=== PATIENT | female | born 1990 | race Caucasian/White ===

== ENCOUNTER 2022-06-16 20:34 | Emergency (ER) | payer BC ==
[2022-06-16] MEDS ORDERED: ONDANSETRON 4 MG/2 ML VIAL ONE (21:15)
[2022-06-16] MEDS ORDERED: ADENOSINE 6 MG/ 2ML VIAL IV ONE ×2 (21:15→21:22)
[2022-06-16] MEDS ORDERED: NA CHLORIDE 0.9% 1,000 ML ONE (21:15)
[2022-06-16] MEDS ORDERED: AMIODARONE HCL 150 MG/3 ML INJ IV ONE (21:27)
[2022-06-16] MEDS ORDERED: NA CHLORIDE 0.9% 100 ML ONE (21:28)
[2022-06-16] MEDS ORDERED: D5W 100 ML IV ONE (21:29)
--- NOTE | 2022-06-16 21:34 | RAD REPORT ---
EXAM DESCRIPTION: [place] Single View06/16/2022 8:57 pm CLINICAL HISTORY: CHEST PAIN COMPARISON: CHEST SINGLE VIEW dated 08/18/2014; CHEST SINGLE VIEW dated 09/02/2012; CHEST SINGLE VIEW dated 09/23/2008 TECHNIQUE: Portable AP view of the chest. FINDINGS: Hazy opacification at both lung bases, may be somewhat accentuated by overlapping soft tis sues. Rhythm monitoring implantable device in place. No pneumothorax or effusion. The cardiomediastin al contours are unremarkable. Sequelae of prior median sternotomy. IMPRESSION: Bibasilar hazy opacification, could reflect early edema. The appearance may in part be a rtifactual.
[2022-06-16 21:36] LABS: Absolute Lymphocytes (CBC) 2.9 K/uL (0.7-4.9); Hematocrit 41.2 % (36.0-45.0); Lymphocytes % 37.4 % (15.3-44.8); MCV 84.4 fL (80-100); MPV 7.6 fL (7.6-11.3); RBC Red Blood Cell Count 4.88 M/uL (3.86-4.86)
[2022-06-16] MEDS ORDERED: AMIODARONE IN DEXTROSE,ISO-OSM 360 MG/200 ML BAG IV ONE (21:56)
[2022-06-16] MEDS ORDERED: METOPROLOL TARTRATE 5 MG/5 ML INJ IV ONE (21:56)
[2022-06-16 21:58] LABS: ALT/SGPT 21 U/L (13-56); AST/SGOT 13 U/L (15-37); Albumin 3.9 g/dL (3.4-5.0); Alkaline Phosphatase 81 U/L (45-117); BUN Blood Urea Nitrogen 12 mg/dL (7-18); Bicarbonate 27 mEq/L (21-32); Bilirubin Total 0.3 mg/dL (0.2-1.0); Glomerular Filtration Rate 83 ml/min (=/>90); Glucose Level 107 mg/dL (74-106); Magnesium 2.1 mg/dL (1.6-2.4); NT PRO-BNP 25 pg/mL (<125); Potassium 3.2 mEq/L (3.5-5.1); Sodium Level 136 mEq/L (136-145)
[2022-06-16 22:01] LABS: Bilirubin Direct < 0.1 mg/dL (0-0.2)
--- NOTE | 2022-06-16 23:58 | EDPHYS ---
Physician Documentation [facility] Name: Jeanne Bethea Age: 32 yrs Sex: Female : 1990 Arrival Date: 06/16/2022 Time: 20:34 Bed 4 Private MD: ED Physician Lennox Eagle HPI: 06/16 23:56 This 32 yrs old Female presents to ER via Wheelchair with complaints of RAPID HEART kb RATE H/O AFIB, TINGLING IN UPPER EXT. 23:56 The patient presents with a history of heart racing. Context: The symptoms occur at kb rest. Onset: The symptoms/episode began/occurred just prior to arrival. Duration: The patient or guardian reports a single episode. Modifying factors: The symptoms are aggravated by nothing. The symptoms are alleviated by nothing. Associated signs and symptoms: The patient has no apparent associated signs or symptoms. Severity of symptoms: At their worst the symptoms were moderate in the emergency department the symptoms are unchanged. The patient has experienced similar episodes in the past, several times. The patient has not recently seen a physician. 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 Flu vaccine is not up to date. - Social history:: Smoking status: Patient denies any tobacco usage or history of. Patient/guardian denies using alcohol, street drugs. ROS: 23:51 Constitutional: Negative for fever, chills, and weight loss. kb 23:51 Cardiovascular: Positive for palpitations. 23:51 All other systems are negative. Exam: 22:26 ECG was reviewed by the Attending Physician. kb 23:52 Constitutional: This is a well developed, well nourished patient who is awake, alert, kb and in no acute distress. Head/Face: Normocephalic, atraumatic. ENT: Moist Mucous membranes Respiratory: Respirations even and unlabored. No increased work of breathing. Talking in full sentences Abdomen/GI: Soft, non-tender. No distention Skin: Warm, dry with normal turgor. Normal color. MS/ Extremity: Pulses equal, no cyanosis. Neurovascular intact. Full, normal range of motion. Neuro: Awake and alert, GCS 15, oriented to person, place, time, and situation. Moves all extremities. Normal gait. 23:52 Cardiovascular: Rate: tachycardic, actual rate is 168 bpm, Rhythm: regular, Pulses: no pulse deficits are appreciated. 23:52 ECG was reviewed by the Attending Physician. Vital Signs: 20:57 BP 137 / 102; Pulse 161; Resp 19 S; Temp 98.8(TE); Pulse Ox 100% on R/A; Weight 80.29 lg3 kg (R); Height 5 ft. 3 in. (R); 21:00 BP 124 / 74; Pulse 159; Resp 17; Pulse Ox 100% on R/A; nj1 21:41 BP 121 / 81; Pulse 154; Resp 16; Pulse Ox 100% on 2 lpm NC; nj1 23:00 BP 105 / 70; Pulse 90; Resp 16; Pulse Ox 100% on 2 lpm NC; jb4 06/17 00:00 BP 106 / 68; Pulse 89; Resp 16; Pulse Ox 100% on R/A; jb4 01:00 BP 112 / 75; Pulse 84; Resp 16; Pulse Ox 99% on R/A; jb4 06/16 20:57 Body Mass Index 31.35 (80.29 kg, 160.02 cm) lg3 MDM: 06/16 20:40 Patient medically screened. kb 23:52 Data reviewed: vital signs, nurses notes. kb 23:54 Differential diagnosis: SVT, PE, A.fib. Consideration of Admission/Observation pt will kb be transferred due to lack of ICU availability at this facility. Management of patient was discussed with the following: Dr Lubin, sliver cutter at [facility]. Counseling: I had a detailed discussion with the patient and/or guardian regarding: the historical points, exam findings, and any diagnostic results supporting the discharge/admit diagnosis, lab results, radiology results, the need to transfer to another facility. 06/16 20:40 Order name: Basic Metabolic Panel; Complete Time: 22:26 kb 06/16 20:40 Order name: CBC with Diff; Complete Time: 21:43 kb 06/16 20:40 Order name: D-Dimer; Complete Time: 21:51 kb 06/16 20:40 Order name: LFT's; Complete Time: 22:26 kb 06/16 20:40 Order name: Magnesium; Complete Time: 22:26 kb 06/16 20:40 Order name: NT PRO-BNP; Complete Time: 22:26 kb 06/16 20:40 Order name: Troponin HS; Complete Time: 22:26 kb 06/16 22:43 Order name: COVID-19 SARS RT PCR; Complete Time: 00:33 rv1 05 20:40 Order name: XRAY Chest (1 view); Complete Time: 21:36 kb 06/16 20:40 Order name: EKG; Complete Time: 20:41 kb 06/16 20:40 Order name: Cardiac monitoring; Complete Time: 21:30 kb 06/16 20:40 Order name: EKG - Nurse/Tech; Complete Time: 21:01 kb 06/16 20:40 Order name: IV Saline Lock; Complete Time: 21:31 kb 06/16 20:40 Order name: Labs collected and sent; Complete Time: 21:31 kb 06/16 20:40 Order name: O2 Per Protocol; Complete Time: 21:31 kb 06/16 20:40 Order name: O2 Sat Monitoring; Complete Time: 21:31 kb EC:48 Rate is 157 beats/min. Rhythm is regular. QRS Concrete is Normal. IA interval is normal at kb 168 msec. QRS interval is normal at 216 msec. QT interval is normal at 514 msec. 22:26 Rate is 90 beats/min. Rhythm is regular. QRS Concrete is Normal. IA interval is prolonged kb at 228 msec. QRS interval is normal at 94 msec. QT interval is normal at 462 msec. Administered Medications: 21:12 Drug: NS 0.9% IV 1000 ml Route: IV; Rate: 1000 ml; Site: right antecubital; nj1 21:13 Drug: Ondansetron IVP 4 mg Route: IVP; Site: right antecubital; nj1 21:26 Follow up: Response: No adverse reaction nj1 21:14 Drug: Adenocard IVP 12 mg Route: IVP; Site: right antecubital; nj1 21:26 Follow up: Response: No adverse reaction nj1 21:17 Drug: Adenocard IVP 12 mg Route: IVP; Site: right antecubital; nj1 21:26 Follow up: Response: No adverse reaction nj1 21:26 Drug: amiodarone IVPB 150 mg Volume: 100 ml; Route: IVPB; Infused Over: 10 mins; Site: nj1 right antecubital; 21:36 Follow up: Response: No adverse reaction; IV Status: Completed infusion; IV Intake: nj1 100ml 21:58 Drug: amiodarone IVPB 900 mg, D5W IV 500 ml Route: IVPB; Rate: 1 mg/min; Site: right jb4 antecubital; 21:58 Drug: Metoprolol IVP 5 mg Route: IVP; Site: right antecubital; jb4 06/17 00:18 Drug: Potassium Chloride PO 40 mEq Route: PO; jb4 Disposition: 01:25 Co-signature as Attending Physician, Lennox Eagle MD I agree with the assessment sp4 and plan of care. I reviewed the patient's care provided by the Advanced Practice Provider and agree with the diagnosis and treatment plan. Disposition Summary: 06/16/22 23:57 Transfer Ordered Transfer Location: Other Acute Care Facility kb Reason: Higher level of care kb Condition: Stable kb Problem: new kb Symptoms: have improved kb Accepting Physician: dr Lubin(06/17/22 01:27) jb4 Diagnosis - Supraventricular tachycardia kb Forms: - Medication Reconciliation Form kb - SBAR form kb Signatures: Dispatcher [employer] Daylin Kimble FNP-C FNP-Andres Ambriz RN RN jb4 Ada Beckham RN RN lg3 Lennox Eagle MD MD sp4 Wanda Causey RN RN nj1 Corrections: (The following items were deleted from the chart) 06/16 23:53 23:52 Rate is 157 beats/min. Rhythm is regular. QRS Concrete is Normal. IA interval is kb normal at 168 msec. QRS interval is normal at 216 msec. QT interval is normal at 514 msec. kb 06/17 01:27 06/16 23:57 dr Lubin kb jb4
--- NOTE | 2022-06-16 23:58 | ER ---
Nurse's Notes [facility] Name: Jeanne Bethea Age: 32 yrs Sex: Female : 1990 Arrival Date: 06/16/2022 Time: 20:34 Bed 4 Private MD: Diagnosis: Supraventricular tachycardia Presentation: 06/16 20:57 Chief complaint: Patient states: increased heart rate, tingling of extremities and lg3 nausea starting around 1999. Coronavirus screen: Client denies travel out of the [place] in the last 14 days. At this time, the client does not indicate any symptoms associated with coronavirus-19. Ebola Screen: No symptoms or risks identified at this time. Initial Sepsis Screen: Does the patient meet any 2 criteria? No. Patient's initial sepsis screen is negative. Does the patient have a suspected source of infection? No. Patient's initial sepsis screen is negative. Risk Assessment: Do you want to hurt yourself or someone else? Patient reports no desire to harm self or others. Onset of symptoms was June 16, 2022. 20:57 Method Of Arrival: Wheelchair lg3 20:57 Acuity: JAZMYN 2 lg3 Triage Assessment: 20:58 General: Appears in no apparent distress. uncomfortable, Behavior is calm, cooperative. lg3 Pain: Denies pain. EENT: No deficits noted. No signs and/or symptoms were reported regarding the EENT system. Neuro: No deficits noted. Alfaro Agitation-Sedation Scale (RASS): 0 - Alert and Calm Level of Consciousness is awake, alert, obeys commands, Oriented to person, place, time, situation. Cardiovascular: Reports nausea, palpitations, shortness of breath, Capillary refill < 3 seconds Clubbing of nail beds is absent JVD is absent Patient's skin is warm and dry. Respiratory: Reports shortness of breath at rest Airway is patent Respiratory effort is even, unlabored, Respiratory pattern is regular, symmetrical. GI: No deficits noted. No signs and/or symptoms were reported involving the gastrointestinal system. : No deficits noted. No signs and/or symptoms were reported regarding the genitourinary system. Derm: No deficits noted. No signs and/or symptoms reported regarding the dermatologic system. Skin is intact, is healthy with good turgor, Skin is dry, Skin is normal, Skin temperature is warm. Musculoskeletal: Reports numbness in right hand, left hand, right foot and left foot. 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 Flu vaccine is not up to date. - Social history:: Smoking status: Patient denies any tobacco usage or history of. Patient/guardian denies using alcohol, street drugs. Screenin:17 [facility] ED Fall Risk Assessment (Adult) History of falling in the last 3 months, jb4 including since admission No falls in past 3 months (0 pts) Confusion or Disorientation No (0 pts) Score/Fall Risk Level 0 - 2 = Low Risk Oriented to surroundings, Maintained a safe environment. Abuse screen: Denies threats or abuse. Nutritional screening: No deficits noted. Tuberculosis screening: No symptoms or risk factors identified. Assessment: 21:17 General: Appears in no apparent distress. comfortable, Behavior is calm, cooperative. jb4 Pain: Denies pain. Neuro: Level of Consciousness is awake, alert, obeys commands, Oriented to person, place, time, situation. Cardiovascular: Patient's skin is warm and dry. Rhythm is SVT. Respiratory: Airway is patent Respiratory effort is even, unlabored, Respiratory pattern is regular, symmetrical. GI: No signs and/or symptoms were reported involving the gastrointestinal system. : No signs and/or symptoms were reported regarding the genitourinary system. EENT: No signs and/or symptoms were reported regarding the EENT system. Derm: Skin is intact, Skin is pink, warm \T\ dry. Musculoskeletal: Circulation, motion, and sensation intact. Range of motion: intact in all extremities. 22:00 Reassessment: Patient appears in no apparent distress at this time. Patient and/or jb4 family updated on plan of care and expected duration. Pain level reassessed. Patient is alert, oriented x 3, equal unlabored respirations, skin warm/dry/pink. 23:00 Reassessment: Patient appears in no apparent distress at this time. Patient and/or jb4 family updated on plan of care and expected duration. Pain level reassessed. Patient is alert, oriented x 3, equal unlabored respirations, skin warm/dry/pink. 06/17 00:00 Reassessment: Patient appears in no apparent distress at this time. Patient and/or jb4 family updated on plan of care and expected duration. Pain level reassessed. Patient is alert, oriented x 3, equal unlabored respirations, skin warm/dry/pink. 01:21 Reassessment: Patient appears in no apparent distress at this time. Patient and/or jb4 family updated on plan of care and expected duration. Pain level reassessed. Patient is alert, oriented x 3, equal unlabored respirations, skin warm/dry/pink. Vital Signs: 06/16 20:57 BP 137 / 102; Pulse 161; Resp 19 S; Temp 98.8(TE); Pulse Ox 100% on R/A; Weight 80.29 lg3 kg (R); Height 5 ft. 3 in. (R); 21:00 BP 124 / 74; Pulse 159; Resp 17; Pulse Ox 100% on R/A; nj1 21:41 BP 121 / 81; Pulse 154; Resp 16; Pulse Ox 100% on 2 lpm NC; nj1 23:00 BP 105 / 70; Pulse 90; Resp 16; Pulse Ox 100% on 2 lpm NC; jb4 06/17 00:00 BP 106 / 68; Pulse 89; Resp 16; Pulse Ox 100% on R/A; jb4 01:00 BP 112 / 75; Pulse 84; Resp 16; Pulse Ox 99% on R/A; jb4 06/16 20:57 Body Mass Index 31.35 (80.29 kg, 160.02 cm) lg3 ED Course: 06/16 20:38 Patient arrived in ED. jj6 20:40 Daylin Gomez [facility]C [facility]. kb 20:40 Lennox Eagle MD is Attending Physician. kb 20:58 Triage completed. lg3 20:58 Arm band placed on right wrist. lg3 20:59 XRAY Chest (1 view) In Process Unspecified. EDMS 21:00 Client placed on continuous cardiac and pulse oximetry monitoring. NIBP monitoring jb4 applied. jewelry drill operator on. 21:17 Initial lab(s) drawn, by tx, sent to lab. Inserted saline lock: 18 gauge in right jb4 antecubital area, using aseptic technique. Blood collected. 21:28 Wanda Causey, RN is Primary Nurse. nj1 23:16 Initiated transfer with [facility] with Alma Beckham. rv1 23:46 COVID-19 SARS RT PCR Sent. rv1 06/17 00:09 Pt accepted to [facility] [place] by Dr. Lubin to ICU Bed 10. rv1 01:23 Patient has correct armband on for positive identification. Placed in gown. Bed in low jb4 position. Call light in reach. Side rails up X 1. 01:25 No provider procedures requiring assistance completed. Patient transferred, IV remains jb4 in place. Administered Medications: 06/16 21:12 Drug: NS 0.9% IV 1000 ml Route: IV; Rate: 1000 ml; Site: right antecubital; nj1 21:13 Drug: Ondansetron IVP 4 mg Route: IVP; Site: right antecubital; nj1 21:26 Follow up: Response: No adverse reaction nj1 21:14 Drug: Adenocard IVP 12 mg Route: IVP; Site: right antecubital; nj1 21:26 Follow up: Response: No adverse reaction nj1 21:17 Drug: Adenocard IVP 12 mg Route: IVP; Site: right antecubital; nj1 21:26 Follow up: Response: No adverse reaction nj1 21:26 Drug: amiodarone IVPB 150 mg Volume: 100 ml; Route: IVPB; Infused Over: 10 mins; Site: nj1 right antecubital; 21:36 Follow up: Response: No adverse reaction; IV Status: Completed infusion; IV Intake: nj1 100ml 21:58 Drug: amiodarone IVPB 900 mg, D5W IV 500 ml Route: IVPB; Rate: 1 mg/min; Site: right jb4 antecubital; 21:58 Drug: Metoprolol IVP 5 mg Route: IVP; Site: right antecubital; jb4 06/17 00:18 Drug: Potassium Chloride PO 40 mEq Route: PO; jb4 Intake: 06/16 21:36 IV: 100ml; Total: 100ml. nj1 Outcome: 23:57 ER care complete, transfer ordered by MD. dacosta 06/17 01:25 Transferred by ground EMS to [facility]. jb4 Condition: stable Discharge instructions given to patient, Instructed on the need for transfer, Demonstrated understanding of instructions. 01:27 Patient left the ED. jb4 Signatures: Dispatcher [employer] EDMS Daylin Gomez, MUSICAL THERAPIST-C MUSICAL THERAPIST-Andres Ambriz, RN RN jb4 Ada Beckham, BENIGNO RN lg3 Emelina Vance jj6 Keesha Poole rv1 Wanda Causey, RN RN nj1 Corrections: (The following items were deleted from the chart) 06/16 21:29 21:28 amiodarone IVPB 150 mg 100 ml IVPB in right antecubital over 10 mins nj1 nj1
[2022-06-17] MEDS ORDERED: POTASSIUM CL SA 10 MEQ TAB PO ONE (00:19)
[2022-06-17 01:44] VITALS: TEMP 98.8
[2022-06-17 01:52] VITALS: BP 112/75; O2SAT 99
--- NOTE | 2022-06-17 15:36 | EKG ---
Test Date: 2022-06-16 Test Time: 20:48:19 Revenue Coordinator: SIS MEASUREMENT RESULTS: Intervals: Rate: 157 [place]: 168 QRSD: 216 QT: 318 QTc: 514 [place]: P: [place]: 168 QRS: 105 T: 32 INTERPRETIVE STATEMENTS: Sinus tachycardia Nonspecific intraventricular block Inferior infarct, age undetermined Abnormal ECG Compared to ECG 08/18/2014 21:48:10 Myocardial infarct finding now present Sinus rhythm no longer present First degree AV block no longer present Incomplete right bundle-branch block no longer present ST (T wave) deviation no longer present Electronically Signed On 06-17-22 15:34:26 CDT by Yann Mujica
--- NOTE | 2022-06-18 16:01 | EKG ---
Test Date: 2022-06-16 Test Time: 22:26:53 Operations Architect: SIS MEASUREMENT RESULTS: Intervals: Rate: 90 ID: [id number] QRSD: 94 QT: 378 QTc: 462 [place]: P: 53 ID: [id number] QRS: 76 T: 51 INTERPRETIVE STATEMENTS: Sinus rhythm with 1st degree AV block Low voltage QRS Borderline ECG No previous ECG available for comparison Electronically Signed On 06-18-22 15:57:45 CDT by Yann Mujica
== END 2022-06-17 01:27 ==
LOC: ER 20:34
DX: I47.1 Supraventricular tachycardia (principal); I48.91 Unspecified atrial fibrillation; Z20.822 Contact with and (suspected) exposure to COVID-19
CPT/HCPCS: 93005 ×2; 85025; 80048; 36415; 83735; 85379; 80076; 84484; 83880; 71045; 96375; 96374; 99285; U0003; J0153 ×2; J0282 ×2; J2405; J7030